=== PATIENT | male | born 1990 | race African-American/Black ===

== ENCOUNTER → 2020-02-22 | Emergency (ER) | payer MEDICAID ==
[~2020-02-22] VITALS: Ht 170.2 cm; Wt 59.1 kg
[~2020-02-22] MED LIST: LORazepam 1 MG tablet PO ONE; aspirin 325mg tablet PO ONE
[2020-02-22 23:15] VITALS: BP 152/105
[2020-02-22 23:40] LABS: LIPASE 72 U/L (73-393)
[2020-02-22 23:53] LABS: BASOPHILS # (AUTO) 0.1 X10'3 (0-0.2); BASOPHILS % (AUTO) 1.1 % (0-1); EOSINOPHILS # (AUTO) 0.1 X10'3 (0-0.9); EOSINOPHILS % (AUTO) 1.5 % (0-6); HEMOGLOBIN 13.3 g/dl (14.0-17.9); LYMPHOCYTES # (AUTO) 2.2 X10'3 (1.1-4.8); LYMPHOCYTES % (AUTO) 42.3 % (21-51); MEAN CORPUSCULAR HEMOGLOBIN 27.3 PG (27.0-31.0); MEAN CORPUSCULAR HGB CONC 32.5 g/dL (33.0-36.5); MEAN CORPUSCULAR VOLUME 83.8 FL (78-98); MEAN PLATELET VOLUME 7.9 FL (7.4-10.4); MONOCYTES # (AUTO) 0.5 X10'3 (0-0.9); MONOCYTES % (AUTO) 10.2 % (2-12); NEUTROPHILS # (AUTO) 2.4 X10'3 (1.8-7.7); NEUTROPHILS % (AUTO) 44.9 % (42-75); PLATELET COUNT 324 X10'3 (140-440); RED BLOOD COUNT 4.89 X10'6 (4.70-6.10); RED CELL DISTRIBUTION WIDTH 14.2 % (11.5-14.5); WHITE BLOOD COUNT 5.3 X10'3 (4.5-11.0)
[2020-02-22 23:54] LABS: ALANINE AMINOTRANSFERASE 85 U/L (12-78); ALBUMIN 3.5 G/DL (3.4-5.0); ALBUMIN/GLOBULIN RATIO 0.8 (1.1-1.5); ALKALINE PHOSPHATASE 65 IU/L (46-116); ANION GAP 8 (8-16); ASPARTATE AMINO TRANSFERASE 45 U/L (10-37); BILIRUBIN,TOTAL 0.1 MG/DL (0.1-1.0); BLOOD UREA NITROGEN 13 MG/DL (7-18); BUN/CREATININE RATIO 12.7 (5.4-32.0); CHLORIDE 105 MMOL/L (99-107); CREATININE 1.02 MG/DL (0.60-1.10); GLUCOSE 91 MG/DL (70-104); POTASSIUM 3.7 MMOL/L (3.5-5.1); SODIUM 141 MMOL/L (135-145); TOTAL CARBON DIOXIDE 28.5 MMOL/L (24-32); TOTAL PROTEIN 7.7 G/DL (6.4-8.2); eGFR 86 ML/MIN
== END | disposition home or self-care (01) ==
LOC: ER 22:38
DX: R07.89 Other chest pain (principal)
CPT/HCPCS: 36415; 71045; 80053; 83690; 83735; 84484; 85025; 93005; 99285

== ENCOUNTER 2020-02-25 01:55 | Emergency (ER) | payer MEDICAID ==
[~2020-02-25] VITALS: Ht 167.6 cm; Wt 59.1 kg
[2020-02-25] MEDS ORDERED: LORazepam 1 MG tablet PO ONE (02:05)
--- NOTE | 2020-02-25 02:18 | NUR ---
PT IS BEING VERBALLY DEMANDING ABOUT HAVING A SANDWITCH , EDUCATED PT THAT HE WILL BE GIVEN A SNADWITCH UPON DISCHARGE WHICH WAS GOING TO BE IN A FEW MINUTES. PT THEN REFUSED TO SIGN HIS DISCHARGE PAPER WORK . HE BEGAN YELLING AND BEING HOSTILE , WAS ALREADY MEDICATED WITH ATIV[facility] PO AND TECH WAS ARRANGING A TAXI TO [place] IF HE WILL BE ALLOWED TO STAY . PT REFUSING TO CORROPORTE ANY FURTHER SECURITY WAS AT BEDSIDE. AND PT WAS DISCHARGED AND ESCORTED OFF UNIT BY THREE SECURITY
[2020-02-25 02:27] VITALS: BP 144/79
== END 2020-02-25 02:20 | disposition home or self-care (01) ==
LOC: ER 01:55
DX: F41.9 Anxiety disorder, unspecified (principal); F32.9 Major depressive disorder, single episode, unspecified; J43.9 Emphysema, unspecified; F15.90 Other stimulant use, unspecified, uncomplicated; Z59.0 Homelessness
CPT/HCPCS: 99283

== ENCOUNTER 2020-03-05 00:39 | Emergency (ER) | payer MEDICAID ==
[~2020-03-05] VITALS: Ht 167.6 cm; Wt 62.3 kg
--- NOTE | 2020-03-05 00:55 | NUR ---
Pt not answering any questions. Appears in no distress
[2020-03-05 02:05] VITALS: BP 125/73
== END 2020-03-05 02:07 | disposition home or self-care (01) ==
LOC: ER 00:40
DX: Z00.00 Encounter for general adult medical examination without abnormal findings (principal); R51 Headache; J43.9 Emphysema, unspecified; F15.90 Other stimulant use, unspecified, uncomplicated; Z59.0 Homelessness
CPT/HCPCS: 99281

== ENCOUNTER 2020-03-07 01:44 | Emergency (ER) | payer MEDICAID ==
[~2020-03-07] VITALS: Ht 167.6 cm; Wt 59.1 kg
[2020-03-07 01:46] VITALS: BP 142/95
[2020-03-07] MEDS ORDERED: TOLN30CR TOP (01:58)
== END 2020-03-07 02:05 | disposition home or self-care (01) ==
LOC: ER 01:45
DX: B35.3 Tinea pedis (principal); F15.90 Other stimulant use, unspecified, uncomplicated; Z59.0 Homelessness
CPT/HCPCS: 99283

== ENCOUNTER 2020-03-11 02:13 | Emergency (ER) | payer MEDICAID ==
[~2020-03-11] VITALS: Ht 167.6 cm; Wt 56.5 kg
[~2020-03-11 02:13] MED LIST changes: -LORazepam 1 MG tablet PO ONE; +TOLN30CR TOP; -aspirin 325mg tablet PO ONE
[2020-03-11 02:15] VITALS: BP 164/109
--- NOTE | 2020-03-11 02:27 | NUR ---
WHEN TALKING TO PT FOR ASSESSMENT, PT STATES "I THINK ITS ALL A FACADE. I SEE BUGS AND SPIDERS BUT YOUR BODY LANGUAGE IS TELLING ME ITS ALL FAKE. IM BLIND AND CANT SEE I THINK." WHEN QUESTIONED ABOUT DRUG USE, PT REFUSED TO ANSWER ANY FUTHER QUESTOINS. WILL CONTINUE TO MONITOR
== END 2020-03-11 04:07 | disposition home or self-care (01) ==
LOC: ER 02:13
DX: F32.9 Major depressive disorder, single episode, unspecified (principal); F41.9 Anxiety disorder, unspecified; J43.9 Emphysema, unspecified; F20.9 Schizophrenia, unspecified; F15.90 Other stimulant use, unspecified, uncomplicated; Z59.0 Homelessness; Z79.899 Other long term (current) drug therapy
CPT/HCPCS: 99281

== ENCOUNTER 2020-03-17 11:36 | Emergency (ER) | payer MEDICAID, OTHER ==
[~2020-03-17] VITALS: Ht 167.6 cm; Wt 61.4 kg
[2020-03-17] MEDS ORDERED: ketorolac tromethamine 15mg/ml inj. IV ONE ×2 (13:05→15:00)
[2020-03-17] MEDS ORDERED: normal saline 1000ML IV soln IVB ONE (13:05)
[2020-03-17] MEDS ORDERED: iohexol 300mg/ml 100ml inj. ONE (13:06)
[2020-03-17 13:33] LABS: BASOPHILS % (AUTO) 0.3 % (0-1); EOSINOPHILS % (AUTO) 0.1 % (0-6); HEMATOCRIT 47.1 % (42.0-52.0); HEMOGLOBIN 15.3 g/dl (14.0-17.9); LYMPHOCYTES # (AUTO) 0.7 X10'3 (1.1-4.8); MEAN CORPUSCULAR HEMOGLOBIN 27.3 PG (27.0-31.0); MEAN CORPUSCULAR HGB CONC 32.4 g/dL (33.0-36.5); MEAN CORPUSCULAR VOLUME 84.3 FL (78-98); MEAN PLATELET VOLUME 8.2 FL (7.4-10.4); MONOCYTES # (AUTO) 0.2 X10'3 (0-0.9); MONOCYTES % (AUTO) 2.6 % (2-12); NEUTROPHILS # (AUTO) 5.2 X10'3 (1.8-7.7); PLATELET COUNT 280 X10'3 (140-440); RED BLOOD COUNT 5.59 X10'6 (4.70-6.10); RED CELL DISTRIBUTION WIDTH 14.7 % (11.5-14.5); WHITE BLOOD COUNT 6.1 X10'3 (4.5-11.0)
[2020-03-17 13:59] LABS: ALANINE AMINOTRANSFERASE 88 U/L (12-78); ALBUMIN 3.8 G/DL (3.4-5.0); ALBUMIN/GLOBULIN RATIO 0.8 (1.1-1.5); ALKALINE PHOSPHATASE 74 IU/L (46-116); ANION GAP 9 (8-16); ASPARTATE AMINO TRANSFERASE 41 U/L (10-37); BILIRUBIN,TOTAL 0.4 MG/DL (0.1-1.0); BLOOD UREA NITROGEN 13 MG/DL (7-18); BUN/CREATININE RATIO 16.5 (5.4-32.0); CALCIUM 9.1 MG/DL (8.5-10.1); CHLORIDE 100 MMOL/L (99-107); CREATININE 0.79 MG/DL (0.60-1.10); ETHANOL < 0.010 GM/DL (0.0-0.010); GLUCOSE 97 MG/DL (70-104); LIPASE 251 U/L (73-393); POTASSIUM 4.4 MMOL/L (3.5-5.1); SODIUM 136 MMOL/L (135-145); TOTAL CARBON DIOXIDE 27.3 MMOL/L (24-32); TOTAL PROTEIN 8.7 G/DL (6.4-8.2); eGFR > 90 ML/MIN
[2020-03-17] MEDS ORDERED: famotidine 20mg tablet PO ONE (15:00)
[2020-03-17] MEDS ORDERED: mag hydrox/Alum hydrox/simeth 30ml oral suspension PO ONE (15:00)
--- NOTE | 2020-03-17 15:00 | NUR ---
PATIENT AWAKENED AND INFORMED OF DC STATUS. PATIENT STATES HE IS STILL HAVING ABD PAIN, DESPITE SLEEPING DEEPLY DURING MOST OF THE TIME HE IS HERE IN THE ER. PROVIDER NOTIFIED AND NEW ORDERS RECEIVED.
[2020-03-17 15:23] VITALS: BP 137/92
== END 2020-03-17 15:25 | disposition home or self-care (01) ==
LOC: ER 11:37
DX: R11.2 Nausea with vomiting, unspecified (principal); J43.9 Emphysema, unspecified; F32.9 Major depressive disorder, single episode, unspecified; F20.9 Schizophrenia, unspecified; F15.90 Other stimulant use, unspecified, uncomplicated; R10.84 Generalized abdominal pain; Z59.0 Homelessness; Z79.899 Other long term (current) drug therapy
CPT/HCPCS: 36415; 74177; 80053; 80320; 83690; 85025; 96361; 96374; 96376; 99285; J1885; J7030; Q9967

== ENCOUNTER 2020-03-23 04:52 | Emergency (ER) | payer MEDICAID, OTHER ==
[~2020-03-23] VITALS: Ht 167.6 cm; Wt 59.0 kg
[2020-03-23 04:55] VITALS: BP 132/72
[2020-03-23] MEDS ORDERED: sertraline 50mg tablet PO ONE (05:25)
[2020-03-23] MEDS ORDERED: SERT25TA PO (05:25)
== END 2020-03-23 05:31 | disposition home or self-care (01) ==
LOC: ER 04:52
DX: F32.9 Major depressive disorder, single episode, unspecified (principal); F15.10 Other stimulant abuse, uncomplicated; F20.9 Schizophrenia, unspecified; Z59.0 Homelessness; Z79.899 Other long term (current) drug therapy
CPT/HCPCS: 99283

== ENCOUNTER 2020-03-29 04:25 | Emergency (ER) | payer MEDICAID, OTHER ==
[~2020-03-29] VITALS: Ht 167.6 cm; Wt 56.2 kg
[~2020-03-29 04:25] MED LIST changes: +SERT25TA PO
[2020-03-29 04:32] VITALS: BP 145/98
--- NOTE | 2020-03-29 04:36 | NUR ---
Pt. in the ED lobby bathroom attempting to wash himself. He is delaying triage processes. lifeguard nearby to assist if needed.
--- NOTE | 2020-03-29 04:38 | NUR ---
Pt state's he did meth a couple hours ago and is worried about tarantulas following him.
--- NOTE | 2020-03-29 04:44 | NUR ---
MD in T1 to evaluate pt. Pt. is stable and no apparent emergency situation has been identified. Pt. to be DC.
== END 2020-03-29 04:50 | disposition home or self-care (01) ==
LOC: ER 04:25
DX: F15.10 Other stimulant abuse, uncomplicated (principal); F32.9 Major depressive disorder, single episode, unspecified; F20.9 Schizophrenia, unspecified; Z59.0 Homelessness; Z79.899 Other long term (current) drug therapy
CPT/HCPCS: 99281; 99283

== ENCOUNTER 2020-03-30 18:52 | Emergency (ER) | payer MEDICAID, OTHER ==
[~2020-03-30] VITALS: Ht 165.1 cm; Wt 59.0 kg
[2020-03-30] MEDS ORDERED: LORazepam 2 mg/ml vial IV ONE (19:00)
[2020-03-30] MEDS ORDERED: normal saline 1000ML IV soln IV ONE (19:00)
[2020-03-30] MEDS ORDERED: naloxone 0.4 mg/ml inj IV ONE (19:10)
[2020-03-30 19:18] LABS: BASOPHILS # (AUTO) 0.1 X10'3 (0-0.2); BASOPHILS % (AUTO) 0.9 % (0-1); EOSINOPHILS # (AUTO) 0.2 X10'3 (0-0.9); EOSINOPHILS % (AUTO) 2.1 % (0-6); HEMATOCRIT 42.9 % (42.0-52.0); HEMOGLOBIN 13.8 g/dl (14.0-17.9); LYMPHOCYTES # (AUTO) 2.1 X10'3 (1.1-4.8); LYMPHOCYTES % (AUTO) 25.8 % (21-51); MEAN CORPUSCULAR HEMOGLOBIN 27.1 PG (27.0-31.0); MEAN CORPUSCULAR HGB CONC 32.2 g/dL (33.0-36.5); MEAN CORPUSCULAR VOLUME 84.1 FL (78-98); MEAN PLATELET VOLUME 7.6 FL (7.4-10.4); MONOCYTES # (AUTO) 0.8 X10'3 (0-0.9); MONOCYTES % (AUTO) 9.6 % (2-12); NEUTROPHILS # (AUTO) 5.1 X10'3 (1.8-7.7); NEUTROPHILS % (AUTO) 61.6 % (42-75); PLATELET COUNT 311 X10'3 (140-440); WHITE BLOOD COUNT 8.2 X10'3 (4.5-11.0)
[2020-03-30 19:23] LABS: CLARITY,URINE CLEAR (Clear); COLOR,URINE YELLOW (Yellow); GLUCOSE, URINE NEGATIVE (Neg); KETONES,URINE NEGATIVE (Neg); LEUKOCYTE ESTERASE ,URINE NEGATIVE (Neg); NITRITES, URINE NEGATIVE (Neg); OCCULT BLOOD,URINE MODERATE (Neg); PROTEIN,URINE NEGATIVE (Neg); UROBILINOGEN,URINE 0.2 E.U/dL (0.2-1.0)
[2020-03-30 19:27] LABS: UA COLLECTION TYPE STRAIGHT CATH
[2020-03-30 19:28] LABS: WBC,URINE NONE SEEN /HPF (0-4)
[2020-03-30 19:29] LABS: BACTERIA,URINE NONE SEEN /HPF (Neg); SQUAMOUS EPITHELIAL CELL,UR FEW /LPF (FEW)
[2020-03-30 19:43] LABS: ALANINE AMINOTRANSFERASE 92 U/L (12-78); ALBUMIN 3.6 G/DL (3.4-5.0); ALBUMIN/GLOBULIN RATIO 0.8 (1.1-1.5); ALKALINE PHOSPHATASE 83 IU/L (46-116); ASPARTATE AMINO TRANSFERASE 45 U/L (10-37); BILIRUBIN,TOTAL 0.3 MG/DL (0.1-1.0); BLOOD UREA NITROGEN 18 MG/DL (7-18); BUN/CREATININE RATIO 16.2 (5.4-32.0); CALCIUM 9.1 MG/DL (8.5-10.1); CKMB RELATIVE INDEX 0.7 RATIO (0-2.5); CREATINE KINASE 466 U/L (39-308); CREATININE 1.11 MG/DL (0.60-1.10); GLUCOSE 105 MG/DL (70-104); TOTAL CARBON DIOXIDE 30.9 MMOL/L (24-32); TOTAL PROTEIN 8.2 G/DL (6.4-8.2); eGFR 78 ML/MIN
[2020-03-30 19:56] LABS: ANION GAP 8 (8-16); CHLORIDE 107 MMOL/L (99-107); POTASSIUM 4.1 MMOL/L (3.5-5.1); SODIUM 145 MMOL/L (135-145)
[2020-03-30 19:58] LABS: ETHANOL < 0.010 GM/DL (0.0-0.010)
[2020-03-30 20:05] LABS: URINE AMPHETAMINE SCREEN POSITIVE (Neg); URINE BARBITUATE SCREEN NEGATIVE (Neg); URINE BENZODIAZEPINES SCREEN NEGATIVE (Neg); URINE CANNABINOID SCREEN POSITIVE (Neg); URINE COCAINE SCREEN NEGATIVE (Neg); URINE METHADONE SCREEN NEGATIVE (Neg); URINE OPIATE SCREEN POSITIVE (Neg); URINE PHENCYCLIDINE SCREEN NEGATIVE (Neg)
--- NOTE | 2020-03-30 20:20 | NUR ---
relieving RN for break, pt is sleeping, light snoring respirations, moving all extremities, 1st liter NS infusing w/o
--- NOTE | 2020-03-30 21:08 | NUR ---
PT WITH STABLE VS. REMAINS ASLEEP, WILL STIR AND MOVE ALL 4 LIMBS SOME WHEN NAME CALLED OR BP CUFF ADJUSTED, BUT DOES NOT OPEN EYES. REMAINS IN SOFT NON BEHAVORIAL RESTRAINTS D/T ALOC. DC PAPERWORK PREPARED FOR WHEN PT AWAKENES ENOUGH TO SAFELY BE DISCHARGED.
--- NOTE | 2020-03-30 22:15 | NUR ---
PT REMANS ASLEEP, WILL AWAKEN WITH LIGHT SHAKING AND TO LOUDER VOICE CALLING HIS NAME, BUT ONLY WILL STIR , MOVE EXTREMITIES AND AT TIMES OPEN EYES BRIEFLY. VSS. AWAITING HIM TO WAKE UP ENOUGH TO EVAL FOR A SAFE DC.
--- NOTE | 2020-03-30 22:48 | NUR ---
RELIEVING RN FOR BREAK, PT CONTINUES TO REST QUIETLY, MOVING ALL EXTREMITIES, RESP EVEN AND UNLABORED
--- NOTE | 2020-03-30 23:59 | NUR ---
NON BEHAVIORAL SOFT RESTRAINTS REMOVED PT'S FLUIDS ARE FINISHED AND HE IS CALM. PT STILL NOT INTERACTING OR OPENING HIS EYES, BUT SHIFTING IN THE BED REGULARLY.
--- NOTE | 2020-03-31 01:16 | NUR ---
PT SLEEPING . STABLE VS.
--- NOTE | 2020-03-31 02:00 | NUR ---
PIV REMOVED AND PT LIGHTLY SHAKEN TO AWAKEN FOR DC. PT REMAINS VERY SOMULANT AND WILL NOT STAY AWAKE LONG ENOUGH TO SIT UP FOR A GAIT TEST.
[2020-03-31 04:27] VITALS: BP 104/77
--- NOTE | 2020-03-31 04:28 | NUR ---
PT WITH STABLE VS. UPDATED COBBLER SOLE , RD, THAT PT CNTINUES TO SLEEP SOUNDLY, BUT WHEN I MOVE HIM AND TAKE VS, HE'LL SHIFT AROUND IF IRRITATED WITH ME.
--- NOTE | 2020-03-31 04:33 | NUR ---
PT LIGHTLY SHAKEN AWAKE AND TOLD HE NEEDS TO LEAVE NOW AND THAT HE IS STABLE AND HAS BEEN READY FOR DISCHARGE FOR HOURS. VSS. PT ACTUALLY OPENED HIS EYES AND SAT AT EDGE OF BED INDEPENDANTLY. GIVEN A SHIRT, HIS WAS CUT OFF BY EMS, AND GIVEN SNACKS. PT AMBULATING INDEPENDANTLY TO BR. WHEN HE CAME OUT HE WAS AGGITATED AND REQUESTED A TAXI RIDE. EXPLAINED THAT HE CAN HAVE A BUS PASS AND THAT HE CAN WAIT AT THE BUS STOP OUTSIDE AND THE BUSSES WILL BEGIN RUNNING IN 1 HR. PT REMAINISED AGGITATED AND WAS ESCORTED OUT OF ER BY SECURITY.
== END 2020-03-31 04:40 | disposition home or self-care (01) ==
LOC: EDBD 18:53 → MERGE 18:53 → ER 18:53
DX: R41.82 Altered mental status, unspecified (principal); F15.10 Other stimulant abuse, uncomplicated; F12.10 Cannabis abuse, uncomplicated; E86.0 Dehydration; F11.10 Opioid abuse, uncomplicated; F17.200 Nicotine dependence, unspecified, uncomplicated; Z56.0 Unemployment, unspecified; Z59.0 Homelessness; Z79.899 Other long term (current) drug therapy
CPT/HCPCS: 36415; 71045; 80053; 80305; 80320; 81001; 82550; 82553; 83605; 85025; 87040; 93005; 96361; 96374; 99285; J2310; J7030

== ENCOUNTER 2020-04-04 17:32 | Emergency (ER) | payer MEDICAID, OTHER ==
[~2020-04-04] VITALS: Ht 170.2 cm; Wt 63.6 kg
[2020-04-04] MEDS ORDERED: naloxone 2mg/2ml inj IV ONE (17:35)
[2020-04-04] MEDS ORDERED: naloxone 2mg/2ml inj IM STA (17:59)
[2020-04-04] MEDS ORDERED: naloxone 2mg/2ml inj IV STA (18:06)
[2020-04-04] MEDS ORDERED: normal saline 1000ML IV soln IVB ONE (18:25)
--- NOTE | 2020-04-04 18:30 | NUR ---
Patient awake and verbally abusive, police at bedside. At this time patient is medically cleared and ready for alf.
[2020-04-04 18:36] VITALS: BP 103/64
[2020-04-04 18:47] LABS: ALANINE AMINOTRANSFERASE 94 U/L (12-78); ALBUMIN 3.1 G/DL (3.4-5.0); ALBUMIN/GLOBULIN RATIO 0.8 (1.1-1.5); ALKALINE PHOSPHATASE 71 IU/L (46-116); ANION GAP 10 (8-16); BILIRUBIN,TOTAL 0.5 MG/DL (0.1-1.0); BLOOD UREA NITROGEN 12 MG/DL (7-18); BUN/CREATININE RATIO 12.9 (5.4-32.0); CALCIUM 7.6 MG/DL (8.5-10.1); CHLORIDE 110 MMOL/L (99-107); CREATININE 0.93 MG/DL (0.60-1.10); GLUCOSE 88 MG/DL (70-104); SODIUM 143 MMOL/L (135-145); TOTAL CARBON DIOXIDE 23.4 MMOL/L (24-32); TOTAL PROTEIN 7.1 G/DL (6.4-8.2); eGFR > 90 ML/MIN
[2020-04-04 18:48] LABS: ASPARTATE AMINO TRANSFERASE 63 U/L (10-37); POTASSIUM 3.8 MMOL/L (3.5-5.1)
== END 2020-04-04 18:40 ==
LOC: ER 17:33
DX: T40.1X1A Poisoning by heroin, accidental (unintentional), initial encounter (principal); F12.90 Cannabis use, unspecified, uncomplicated; F15.90 Other stimulant use, unspecified, uncomplicated; Z59.0 Homelessness; Z56.0 Unemployment, unspecified; Z79.899 Other long term (current) drug therapy; Y92.89 Other specified places as the place of occurrence of the external cause
CPT/HCPCS: 36415; 80053; 96374; 99284; J2310; J7030

== ENCOUNTER 2020-05-29 23:08 | Emergency (ER) | payer MEDICAID, OTHER ==
[~2020-05-29] VITALS: Ht 168.9 cm; Wt 59.0 kg
[2020-05-29] MEDS ORDERED: TETanus/Pertussis (Acell)/Diphther VAC/PF (Tdap-Adult) 0.5ml syringe IMVAC ONE (23:40)
[2020-05-29] MEDS ORDERED: SULF1TAB49 PO (23:46)
[2020-05-29] MEDS ORDERED: CEPH500C5 PO (23:46)
[2020-05-29 23:56] VITALS: BP 130/90
== END 2020-05-29 23:57 | disposition home or self-care (01) ==
LOC: ER 23:08
DX: L03.113 Cellulitis of right upper limb (principal); F17.200 Nicotine dependence, unspecified, uncomplicated; F12.90 Cannabis use, unspecified, uncomplicated; F15.90 Other stimulant use, unspecified, uncomplicated; F11.90 Opioid use, unspecified, uncomplicated; Z59.0 Homelessness; Z56.0 Unemployment, unspecified; Z79.2 Long term (current) use of antibiotics; Z79.899 Other long term (current) drug therapy
CPT/HCPCS: 87070; 90471; 90715; 99283

== ENCOUNTER 2020-06-01 02:00 | Emergency (ER) | payer MEDICAID ==
[~2020-06-01] VITALS: Ht 170.2 cm; Wt 59.1 kg
[~2020-06-01 02:00] MED LIST changes: +CEPH500C5 PO; +SULF1TAB49 PO
[2020-06-01 02:09] VITALS: BP 141/99
[2020-06-01] MEDS ORDERED: acetaminophen 325mg tablet PO ONE (02:30)
== END 2020-06-01 02:45 | disposition home or self-care (01) ==
LOC: ER 02:00
DX: R10.13 Epigastric pain (principal); R11.2 Nausea with vomiting, unspecified; F41.9 Anxiety disorder, unspecified; F12.90 Cannabis use, unspecified, uncomplicated; F15.90 Other stimulant use, unspecified, uncomplicated; F11.90 Opioid use, unspecified, uncomplicated; Z72.89 Other problems related to lifestyle; Z59.0 Homelessness; Z56.0 Unemployment, unspecified; Z79.899 Other long term (current) drug therapy
CPT/HCPCS: 99282

== ENCOUNTER 2020-06-02 17:08 | Emergency (ER) | payer MEDICAID ==
[~2020-06-02] VITALS: Ht 167.6 cm; Wt 59.1 kg
[2020-06-02] MEDS ORDERED: ibuprofen tablet 400 MG TABLET PO ONE (17:30)
[2020-06-02 18:40] VITALS: BP 137/96
== END 2020-06-02 19:13 | disposition home or self-care (01) ==
LOC: ER 17:08
DX: R10.31 Right lower quadrant pain (principal); N50.811 Right testicular pain; F41.9 Anxiety disorder, unspecified; F12.90 Cannabis use, unspecified, uncomplicated; F15.90 Other stimulant use, unspecified, uncomplicated; F11.90 Opioid use, unspecified, uncomplicated; F20.9 Schizophrenia, unspecified; Z72.89 Other problems related to lifestyle; Z59.0 Homelessness; Z56.0 Unemployment, unspecified; Z79.899 Other long term (current) drug therapy
CPT/HCPCS: 76870; 93976; 99284

== ENCOUNTER 2020-06-07 16:23 | Emergency (ER) | payer MEDICAID ==
[~2020-06-07] VITALS: Ht 170.2 cm; Wt 59.1 kg
[2020-06-07 16:34] VITALS: BP 132/80
--- NOTE | 2020-06-07 16:47 | NUR ---
Patient had been in bed 18 awaiting blood draw then got up and before getting blood drawn, patient got up told registration, " I'm feeling better, thank you." Then walked quickly per registration out of lobby. I attempted to call patient and was unable to get a hold of anyone due to voice mail stating that the person you are trying to reach is not able to take calls. The number listed for next of kin was the same at patients number.
== END 2020-06-07 16:51 | disposition left against medical advice (07) ==
LOC: ER 16:24
DX: R07.89 Other chest pain (principal); Z53.21 Procedure and treatment not carried out due to patient leaving prior to being seen by health care provider
CPT/HCPCS: 93005

== ENCOUNTER 2020-06-09 01:00 | Emergency (ER) | payer MEDICAID, OTHER ==
--- NOTE | 2020-06-09 01:20 | NUR ---
UNABLE TO COMPLETE TRIAGE. CAME BACK FROM LUNCH AND PATIENT WAS GONE. ACCORDING TO MARIKA PATIÑO, PATIENT BEGAN THREATENING STAFF AND LEFT ED.
== END 2020-06-09 01:23 | disposition left against medical advice (07) ==
LOC: ER 01:01
DX: R07.89 Other chest pain (principal); Z53.21 Procedure and treatment not carried out due to patient leaving prior to being seen by health care provider
CPT/HCPCS: 93005

== ENCOUNTER 2020-06-10 07:06 | Inpatient (IN) | payer MEDICAID, OTHER ==
[~2020-06-10] VITALS: Ht 175.3 cm; Wt 52.0 kg
[~2020-06-10 07:06] MED LIST changes: -SULF1TAB49 PO
[2020-06-10] MEDS ORDERED: aspirin 81mg tab.chew PO ONE (07:15)
[2020-06-10] MEDS ORDERED: heparin 25,000 UNIT/250ml bag 250 ML IV SCH (07:18)
[2020-06-10] MEDS ORDERED: ondansetron/PF 4mg/2ml inj IV ONE (07:20)
[2020-06-10] MEDS ORDERED: heparin 10,000 units/1 ML INJ IV ONE ×2 (07:20→07:25)
[2020-06-10] MEDS ORDERED: proCHLORperazine 10 MG/2 ml inj IV ONE (07:20)
[2020-06-10 07:42] LABS: BASOPHILS % (AUTO) 0.7 % (0-1); EOSINOPHILS % (AUTO) 0.4 % (0-6); HEMOGLOBIN 13.3 g/dl (14.0-17.9); LYMPHOCYTES # (AUTO) 1.1 X10'3 (1.1-4.8); MEAN CORPUSCULAR HEMOGLOBIN 27.5 PG (27.0-31.0); MEAN CORPUSCULAR HGB CONC 32.4 g/dL (33.0-36.5); MEAN CORPUSCULAR VOLUME 84.7 FL (78-98); MONOCYTES # (AUTO) 0.2 X10'3 (0-0.9); MONOCYTES % (AUTO) 3.5 % (2-12); NEUTROPHILS # (AUTO) 4.9 X10'3 (1.8-7.7); NEUTROPHILS % (AUTO) 78.4 % (42-75); PLATELET COUNT 297 X10'3 (140-440); RED BLOOD COUNT 4.84 X10'6 (4.70-6.10); RED CELL DISTRIBUTION WIDTH 14.4 % (11.5-14.5); WHITE BLOOD COUNT 6.2 X10'3 (4.5-11.0)
[2020-06-10 07:55] LABS: PARTIAL THROMBOPLASTIN TIME 31 SECONDS (22-32)
[2020-06-10 07:58] LABS: ALANINE AMINOTRANSFERASE 122 U/L (12-78); ALBUMIN 3.5 G/DL (3.4-5.0); ALBUMIN/GLOBULIN RATIO 0.8 (1.1-1.5); ALKALINE PHOSPHATASE 58 IU/L (46-116); ANION GAP 5 (8-16); ASPARTATE AMINO TRANSFERASE 58 U/L (10-37); BILIRUBIN,TOTAL 0.3 MG/DL (0.1-1.0); BLOOD UREA NITROGEN 11 MG/DL (7-18); CALCIUM 9.1 MG/DL (8.5-10.1); CHLORIDE 103 MMOL/L (99-107); CREATININE 0.92 MG/DL (0.60-1.10); GLUCOSE 99 MG/DL (70-104); POTASSIUM 3.9 MMOL/L (3.5-5.1); SODIUM 137 MMOL/L (135-145); TOTAL CARBON DIOXIDE 28.9 MMOL/L (24-32); eGFR > 90 ML/MIN
--- NOTE | 2020-06-10 08:00 | NUR ---
DR. LOMBARDI IN TO SEE PT.
[2020-06-10 08:06] LABS: MAGNESIUM 1.8 MG/DL (1.5-2.4)
[2020-06-10] MEDS ORDERED: normal saline 1000ml 1,000 ML IV ONE (08:10)
[2020-06-10] MEDS ORDERED: iohexol 350MG/ML 100ml bottle IV ONE (08:26)
--- NOTE | 2020-06-10 09:00 | NUR ---
TO CT WITH PT AND BACK
[2020-06-10 09:58] LABS: CLARITY,URINE CLOUDY (Clear); COLOR,URINE YELLOW (Yellow); GLUCOSE, URINE NEGATIVE (Neg); KETONES,URINE NEGATIVE (Neg); LEUKOCYTE ESTERASE ,URINE NEGATIVE (Neg); NITRITES, URINE NEGATIVE (Neg); OCCULT BLOOD,URINE NEGATIVE (Neg); PH,URINE 8.5 (4.8-8.0); PROTEIN,URINE NEGATIVE (Neg); UROBILINOGEN,URINE 0.2 E.U/dL (0.2-1.0)
[2020-06-10 10:01] LABS: UA COLLECTION TYPE NON-SPECIFIED
[2020-06-10 10:05] LABS: URINE AMPHETAMINE SCREEN NEGATIVE (Neg); URINE BARBITUATE SCREEN NEGATIVE (Neg); URINE BENZODIAZEPINES SCREEN NEGATIVE (Neg); URINE CANNABINOID SCREEN NEGATIVE (Neg); URINE COCAINE SCREEN NEGATIVE (Neg); URINE METHADONE SCREEN NEGATIVE (Neg); URINE OPIATE SCREEN POSITIVE (Neg); URINE PHENCYCLIDINE SCREEN NEGATIVE (Neg)
[2020-06-10 10:06] LABS: AMORPHOUS PHOSPHATES 1+
[2020-06-10 10:07] LABS: BACTERIA,URINE NONE SEEN /HPF (Neg); RBC,URINE NONE SEEN /HPF (0-2); SQUAMOUS EPITHELIAL CELL,UR FEW /LPF (FEW); WBC,URINE 0-4 /HPF (0-4)
[2020-06-10] MEDS ORDERED: acetaminophen 325mg tablet PO PRN (10:20)
[2020-06-10] MEDS ORDERED: morphine 2 MG/ML inj. syringe IV PRN ×2 (10:20)
[2020-06-10] MEDS ORDERED: mag hydrox/Alum hydrox/simeth 30ml oral suspension PO PRN (10:20)
[2020-06-10] MEDS ORDERED: magnesium hydroxide 30ml (MOM) UD suspension PO PRN (10:20)
[2020-06-10] MEDS ORDERED: ondansetron/PF 4mg/2ml inj IV PRN (10:20)
[2020-06-10] MEDS: normal saline 1000ml 1,000 ML IV SCH ×2 (10:30→20:18)
[2020-06-10 11:00] VITALS: BP 141/91
--- NOTE | 2020-06-10 11:20 | NUR ---
received report from ED RN. Had opportunities to ask questions concerning Pt and care.
--- NOTE | 2020-06-10 11:25 | NUR ---
Pt arrived to floor to room 3016B. Vitals taken and WNL. Will continue to monitor Pt.
[2020-06-10] MEDS: heparin 25,000 UNIT/250ml bag 250 ML IV SCH ×3 (13:23→22:25)
[2020-06-10] MEDS: heparin 10,000 units/1 ML INJ IV PRN ×2 (14:07→22:22)
--- NOTE | 2020-06-10 14:25 | NUR ---
Low BMI trigger: BMI 16.9. Pt admit w/ nausea/vomiting hx heroin and meth abuse. Current wt not scaled and pt has not had scaled wt hx despite 15 prior ER visit since January this year. Pt ht has also fluctuated between ER visits mostly 66in compared to current 69in ht. IF current wt accurate given ht hx pt BMI likely 18.5 lower end of normal. Normal strength per MD note and PO pending at this time. Will continue to monitor for scaled wt and PO hx this admit. Addendum: 06/10/20 at [address] Amended: Links added.
[2020-06-10 15:00] VITALS: BP 121/70
[2020-06-10 18:00] VITALS: BP 133/74
--- NOTE | 2020-06-10 18:15 | NUR ---
Problems reprioritized. Patient report given, questions answered & plan of care reviewed with Netta BURROWS.
--- NOTE | 2020-06-10 21:35 | NUR ---
2 lab techs and 2 nurses tried to get blood drawn for PTT on both arms, but not successful. MD ordered to get lab drawn from pt's feet.
[2020-06-10 22:00] VITALS: BP 128/76
[2020-06-11 02:00] VITALS: BP 121/77
[2020-06-11 05:59] LABS: BASOPHILS # (AUTO) 0.1 X10'3 (0-0.2); BASOPHILS % (AUTO) 0.8 % (0-1); EOSINOPHILS % (AUTO) 0 % (0-6); HEMATOCRIT 41.7 % (42.0-52.0); HEMOGLOBIN 13.9 g/dl (14.0-17.9); LYMPHOCYTES # (AUTO) 1.3 X10'3 (1.1-4.8); LYMPHOCYTES % (AUTO) 14.5 % (21-51); MEAN CORPUSCULAR HEMOGLOBIN 28.1 PG (27.0-31.0); MEAN CORPUSCULAR HGB CONC 33.3 g/dL (33.0-36.5); MEAN CORPUSCULAR VOLUME 84.3 FL (78-98); MEAN PLATELET VOLUME 8.5 FL (7.4-10.4); MONOCYTES # (AUTO) 0.4 X10'3 (0-0.9); MONOCYTES % (AUTO) 4.4 % (2-12); NEUTROPHILS # (AUTO) 7.4 X10'3 (1.8-7.7); NEUTROPHILS % (AUTO) 80.3 % (42-75); PLATELET COUNT 294 X10'3 (140-440); RED BLOOD COUNT 4.94 X10'6 (4.70-6.10); RED CELL DISTRIBUTION WIDTH 14.4 % (11.5-14.5); WHITE BLOOD COUNT 9.2 X10'3 (4.5-11.0)
[2020-06-11 06:00] VITALS: BP 129/84
--- NOTE | 2020-06-11 06:05 | NUR ---
Problems reprioritized. Patient report given, questions answered & plan of care reviewed with STORMY Churchill.
[2020-06-11 06:15] LABS: ALBUMIN 3.2 G/DL (3.4-5.0); ANION GAP 9 (8-16); BLOOD UREA NITROGEN 13 MG/DL (7-18); BUN/CREATININE RATIO 16.5 (5.4-32.0); CALCIUM 8.9 MG/DL (8.5-10.1); CHLORIDE 100 MMOL/L (99-107); CREATININE 0.79 MG/DL (0.60-1.10); GLUCOSE 94 MG/DL (70-104); POTASSIUM 3.6 MMOL/L (3.5-5.1); SODIUM 134 MMOL/L (135-145); TOTAL CARBON DIOXIDE 25.5 MMOL/L (24-32); eGFR > 90 ML/MIN
--- NOTE | 2020-06-11 06:15 | NUR ---
Patient in room PCU 3016. I have received report from Axel BURROWS and had the opportunity to ask questions and assume patient care.
[2020-06-11] MEDS: normal saline 1000ml 1,000 ML IV SCH (06:18)
[2020-06-11] MEDS: heparin 10,000 units/1 ML INJ IV PRN (06:49)
[2020-06-11] MEDS: heparin 25,000 UNIT/250ml bag 250 ML IV SCH (06:51)
--- NOTE | 2020-06-11 09:32 | NUR ---
PAGER ID: [phone] MESSAGE: Re: Buck Gu. Room: [facility]. scheduled EKG performed on Pt. EKG says acute NE. No current complaints of chest pain from Pt. can I show you EKG? -[facility] #[id number] Dr. Bai paged concerning Pt's EKG saying acute NE. awaiting response/new orders from Dr. Bai.
[2020-06-11] MEDS ORDERED: aspirin 81mg tablet.DR PO ONE (10:00)
--- NOTE | 2020-06-11 10:45 | NUR ---
Pt left AMA. Discussed with Pt the cons of leaving Against Medical Advice but Pt was adamant about leaving. Pt ripped out both IV's, canula's intact and removed tele-box, which was then returned to [employer]. Pt's belongings were gathered and pt dressed himself. Pt was then escorted downstairs by nurse where Pt left through hospital front entrance and walked out. Dr. Bai notified that Pt left AMA. -[facility] #[id number]
--- NOTE | 2020-06-11 10:55 | NUR ---
PAGER ID: [phone] MESSAGE: Re: Buck Gu. Room: 3016B. Pt just left [place] -[facility] #[id number] Dr. aBi paged concerning Pt leaving AMA.
[2020-06-12] MEDS ORDERED: aspirin 81mg tablet.DR PO SCH (08:00)
== END 2020-06-11 10:49 | disposition left against medical advice (07) | DRG 201 ==
LOC: ER 07:06 → ED HOLD 10:18 → PCU 3S 11:48
PROVIDERS: ADMIT Family Medicine; ATTEND Family Medicine
DX: I49.8 Other specified cardiac arrhythmias (principal); F12.90 Cannabis use, unspecified, uncomplicated; F11.10 Opioid abuse, uncomplicated; F19.10 Other psychoactive substance abuse, uncomplicated; M54.6 Pain in thoracic spine; Z53.29 Procedure and treatment not carried out because of patient's decision for other reasons
CPT/HCPCS: 36415; 71045; 71275; 80048; 80053; 80305; 81001; 83735; 83880; 84484; 85025; 85610; 85730; 87081; 93005; 93306; 96365; 96375; 96376; 99285; G0378; J0780; J1644; J2405; J7030; Q9967

== ENCOUNTER 2020-06-16 20:31 | Emergency (ER) | payer MEDICAID ==
[~2020-06-16] VITALS: Ht 168.9 cm; Wt 59.0 kg
[2020-06-16 20:56] VITALS: BP 128/87
== END 2020-06-16 21:12 | disposition left against medical advice (07) ==
LOC: ER 20:32
DX: R07.9 Chest pain, unspecified (principal); Z53.21 Procedure and treatment not carried out due to patient leaving prior to being seen by health care provider

== ENCOUNTER 2020-06-23 16:10 | Emergency (ER) | payer MEDICAID ==
[~2020-06-23] VITALS: Ht 167.6 cm; Wt 55.8 kg
[2020-06-23 16:15] VITALS: BP 147/88
--- NOTE | 2020-06-23 16:51 | NUR ---
Patient was taken into bed 18 for blood draw. Patient refused to allow silk spreader to draw blood and got up from chair walked out of ED per phlebotomy.
== END 2020-06-23 19:13 | disposition left against medical advice (07) ==
LOC: ER 16:10
DX: R19.7 Diarrhea, unspecified (principal); R10.9 Unspecified abdominal pain; Z53.21 Procedure and treatment not carried out due to patient leaving prior to being seen by health care provider

== ENCOUNTER 2020-06-24 00:39 | Emergency (ER) | payer MEDICAID ==
[~2020-06-24] VITALS: Ht 167.6 cm; Wt 55.8 kg
[2020-06-24 00:50] VITALS: BP 135/93
== END 2020-06-24 00:58 | disposition left against medical advice (07) ==
LOC: ER 00:41
DX: R10.9 Unspecified abdominal pain (principal); Z53.21 Procedure and treatment not carried out due to patient leaving prior to being seen by health care provider

== ENCOUNTER 2020-06-24 07:48 | Emergency (ER) | payer MEDICAID ==
--- NOTE | 2020-06-24 08:26 | NUR ---
NIL X 3
== END 2020-06-24 08:27 | disposition left against medical advice (07) ==
LOC: ER 07:48
DX: R10.9 Unspecified abdominal pain (principal); Z53.21 Procedure and treatment not carried out due to patient leaving prior to being seen by health care provider

== ENCOUNTER 2020-06-24 22:40 | Emergency (ER) | payer MEDICAID ==
--- NOTE | 2020-06-24 22:54 | NUR ---
HE IS IN THE BATHROOM.
== END 2020-06-24 23:25 | disposition left against medical advice (07) ==
LOC: ER 22:41
DX: Z53.21 Procedure and treatment not carried out due to patient leaving prior to being seen by health care provider (principal)

== ENCOUNTER 2020-07-04 03:33 | Emergency (ER) | payer MEDICAID | END 2020-07-04 04:09 | disposition left against medical advice (07) | LOC: ER 03:33 | DX: R51 Headache (principal); Z53.21 Procedure and treatment not carried out due to patient leaving prior to being seen by health care provider ==

== ENCOUNTER 2020-07-12 00:59 | Emergency (ER) | payer MEDICAID ==
[~2020-07-12] VITALS: Ht 170.2 cm; Wt 59.1 kg
[2020-07-12 01:04] VITALS: BP 137/86
== END 2020-07-12 01:58 | disposition left against medical advice (07) ==
LOC: ER 01:00
DX: R07.89 Other chest pain (principal); Z53.21 Procedure and treatment not carried out due to patient leaving prior to being seen by health care provider

== ENCOUNTER 2020-07-31 23:37 | Emergency (ER) | payer MEDICAID ==
[~2020-07-31] VITALS: Ht 170.2 cm; Wt 59.0 kg
[2020-07-31 23:38] VITALS: BP 150/95
== END 2020-08-01 00:26 | disposition home or self-care (01) ==
LOC: ER 23:38
DX: R07.89 Other chest pain (principal); J43.9 Emphysema, unspecified; F41.9 Anxiety disorder, unspecified; F20.9 Schizophrenia, unspecified; F12.90 Cannabis use, unspecified, uncomplicated; F15.90 Other stimulant use, unspecified, uncomplicated; F11.90 Opioid use, unspecified, uncomplicated; Z72.89 Other problems related to lifestyle; Z56.0 Unemployment, unspecified; Z59.0 Homelessness; Z79.2 Long term (current) use of antibiotics; Z79.899 Other long term (current) drug therapy
CPT/HCPCS: 93005; 99283